=== PATIENT | male | born 1980 | race Caucasian/White ===

== ENCOUNTER 2017-01-14 16:47 | Emergency (ER) | payer OTHER ==
[~2017-01-14] VITALS: Ht 177.8 cm; Wt 86.2 kg
[2017-01-14 16:50] VITALS: BP 149/88; PULSE 125; RESP 18; TEMP 98.4; O2SAT 97
--- NOTE | 2017-01-14 16:50 | NUR ---
BROUGHT IN BY [facility] AND PLACED IN HALLWAY, TRIAGED. REPORT GIVEN TO KOURTNEY
--- NOTE | 2017-01-14 17:19 | NUR ---
Written and verbal consent obtained from patient for blood alcohol, name and verified by patient. Disinfected patient's skin with iodine that did not contain alcohol or other volatile organic compound. Collected the blood from the subject named by venipuncture, in the presence of [facility] office. Used a sterile, dry hypodermic needle and dry vacuum blood collection. The dry vacuum blood collection was supplied by the officer named above. Withdrew a specimen of blood from left FA of the subject named above. Inverted the blood tube several times to ensure that the preservative and anticoagulant were thoroughly mixed in the blood specimen. I initialed the blood tube label for identification. The labeled blood tube was handed directly to the Officer. The blood tube stopper remained in place while I had possession of the blood tube. The Officer placed tube into envelope and sealed it in my presence. Envelope initialed by myself and Officer. Patient tolerated well, bandage applied, and bleeding controlled.
--- NOTE | 2017-01-14 17:30 | NUR ---
Patient given written and verbal discharge information. Patient discharged into custody of [facility]. Denies pain. ID band removed. Patient will be taken to [facility].
== END 2017-01-14 17:30 | disposition home or self-care (01) ==
LOC: SED 16:47
DX: Z02.83 Encounter for blood-alcohol and blood-drug test (principal)
CPT/HCPCS: 99283